=== PATIENT | male | born 1960 | race Hispanic/Latino ===

== ENCOUNTER 2019-10-19 06:55 | Day surgery (SDC) | payer MEDICAID ==
--- NOTE | 2019-10-18 09:11 | Short Stay Summary ---
Short Stay Documentation Date of service: 10/19/19 - History H&P: obtained from office - Allergies and Medications Current Medications: Allergies fish derived Allergy (Verified 10/15/19 09:13) Hives ORAL AND IV CONTRAST IS OK aspirin Adverse Reaction (Verified 10/15/19 09:13) GI Pain Home Medications Medication Instructions Recorded Confirmed Last Taken Type AtorvaSTATin [Lipitor] 20 mg PO QHS 10/15/19 10/15/19 Unknown History Ecotrin 81 mg PO DAILY 10/15/19 10/15/19 2 Days Ago History ~10/13/19 Ibuprofen [Motrin] 800 mg PO Q8HR PRN 10/15/19 10/15/19 Unknown History Levothyroxine [Synthroid] 100 mcg PO QAM 10/15/19 10/15/19 Unknown History Multivit-Min/Folic/Vit K/Lycop 1 each PO DAILY 10/15/19 10/15/19 Unknown History [One-A-Day Men's 50 Plus Tablet] amLODIPine [Norvasc] 10 mg PO DAILY 10/15/19 10/15/19 Unknown History hydroCHLOROthiazide 12.5 mg PO DAILY 10/15/19 10/15/19 Unknown History [Hydrochlorothiazide] - Physical exam General appearance: no acute distress HEENT: Atraumatic Lungs: Normal air movement Neurological: Normal speech - Brief post op/procedure progress note Date of procedure: 10/19/19 (dictation:[id number]) Pre-op diagnosis: BIH Post-op diagnosis: other (RIH) Procedure: robotic assisted lap RIH repair IVF 700cc EBL ~10cc Anesthesia: GETA Findings: large indirect RIH with large cord lipoma. no hernia on left Surgeon: KALEY JONES Switchboard Troubleshooter: RICHARD RM Estimated blood loss: minimal Pathology: none Condition: stable - Hospital course Hospital course: uneventful - Disposition Condition at discharge: Stable Disposition: DC-01 TO HOME OR SELFCARE Short Stay Discharge Plan Activity: advance as tolerated Diet: regular Wound: open to air, keep clean and dry Special Instructions: no heavy lifting Additional Instructions: Post Operative Instructions Activity: no heavy lifting for next 1 week. May shower tomorrow. Pat dry the wound or wounds. Keep incision sites clean and dry After surgery, start with a light diet. Consider starting with liquids. If you do well, you can advance to a regular diet as you feel comfortable. Apply an ice pack to the wound or wounds for 10-20 minutes at a time. Do this at least 4-5 times a day. You can do it more if he would like. Pain Medication Schedule for the first 2 days after surgery: Gabapentin 900mg twice a day Tylenol 500mg four times a day (every 6 hours) After the first 2 days, then take Tylenol as needed for pain. Take 500 mg of Tylenol every 6 hours as needed. Please finish the 1 week of gabapentin It is very important that you use the prescription narcotic pain medicine (percocet) only for very severe pain. Do not take the narcotic medicine before you try using all the medications listed above. YOU were medicated with 1 PERCOCET tab by mouth at 1215 .Remember to take Gabapentin and Tylenol as recommender by Dr Jones We will call you in a couple of days to see how youre doing. If you have any questions or concerns, always feel free to call the clinic ([phone]) at any time. Follow up with: KALEY JONES MD [Staff Physician] - 7 Days Forms: Outpatient Surgery DC Inst. Prescriptions: RX: Acetaminophen [Acetaminophen TAB] 500 mg PO Q6HR PRN #30 tablet PRN Reason: Pain, Moderate (4-6) Oxycodone HCl/Acetaminophen [Percocet 10/325 mg] 1 each PO Q6HR PRN #20 tablet PRN Reason: Pain , Severe (7-10)
[~2019-10-19 06:55] MED LIST: ACETAMINOPHEN 500 MG TAB PO NR; GABAPENTIN 400 MG CAP PO SCH; LACTATED RINGERS 1,000 ML IV SCH; MIDAZOLAM 2 MG/2 ML INJ IV NR; SODIUM CHLORIDE 0.9% 1000 ML 1,000 ML IV SCH; ceFAZolin/Water 2 GM/20 ML 2 GM/20 ML SYRINGE IV NR
[2019-10-19] MEDS ORDERED: LIDOCAINE (1%) 10 MG/1 ML VIAL 20 ML MDV ONE (07:27)
[2019-10-19] MEDS ORDERED: BUPIVACAINE-EPINEPHRINE/PF 0.5%-1:200,000 (30 ML) VIAL INFILTRATI ONE ×2 (07:27→10:00)
--- NOTE | 2019-10-19 07:34 | Anesthesia Consultation ---
Anesthesia Consult and Med Hx Date of service: 10/19/19 - Airway Anesthetic Teeth Evaluation: Good (missing teeth) ROM Head & Neck: Adequate (neck pain 2/2 herniated disc; normal ROM) Mental/Hyoid Distance: Inadequate Mallampati Class: Class III Intubation Access Assessment: Possibly Difficult - Pulmonary Exam CTA: Yes - Cardiac Exam Cardiac Exam: RRR - Pre-Operative Health Status ASA Pre-Surgery Classification: ASA3 Proposed Anesthetic Plan: General - Pulmonary Hx Smoking: No Hx Asthma: Yes (childhood; no inhaler use as an adult) Hx Respiratory Symptoms: No Hx Sleep Apnea: No (patient suspects but no formal diagnosis) - Cardiovascular System Hx Hypertension: Yes (took antihypertensives last night) Hx Heart Attack/AMI: No Hx Percutaneous Transluminal Coronary Angioplasty (PTCA): No - Central Nervous System CVA: No Hx Back Pain: Yes (2/2 herniated disc) Hx Psychiatric Problems: Yes (PTSD, anxiety, depression) - Gastrointestinal Hx Gastroesophageal Reflux Disease: Yes (w/ esophageal stricture s/p dilatations) - Endocrine Hx Renal Disease: No Hx Liver Disease: No Hx Insulin Dependent Diabetes: No Hx Non-Insulin Dependent Diabetes: No Hx Hypothyroidism: Yes - Additional Comments Anesthesia Medical History Comments: No hx anesthetic complications.
--- NOTE | 2019-10-19 07:34 | Anesthesia Day of Surgery ---
Anesthesia Day of Surgery - Day of Surgery Patient Examined: Yes Patient H&P Reviewed: Yes Patient is NPO: Yes Cardiac Clearance: Yes
[2019-10-19] MEDS ORDERED: ONDANSETRON 4 MG/2 ML INJ ONE (07:35)
[2019-10-19] MEDS ORDERED: HYDROmorphone 1 MG/1 ML INJ ONE (07:35)
[2019-10-19] MEDS ORDERED: ROCURONIUM 50 MG/5 ML INJ IV ONE (07:35)
[2019-10-19] MEDS ORDERED: propofoL 200 MG/20 ML VIAL IV ONE (07:36)
[2019-10-19] MEDS ORDERED: HYDROmorphone 1 MG/1 ML INJ IV PRN (08:00)
[2019-10-19] MEDS ORDERED: FAMOTIDINE 20 MG/2 ML INJ IV SCH (08:00)
[2019-10-19] MEDS ORDERED: dexAMETHasone 20 MG/5 ML VIAL ONE (08:56)
[2019-10-19] MEDS ORDERED: LIDOCAINE MPF (2%) 20 MG/1 ML VIAL 5 ML ONE (08:57)
[2019-10-19] MEDS ORDERED: SODIUM CHLORIDE 0.9% IRRIG SOLN 2000 ML IR ONE (10:00)
[2019-10-19] MEDS ORDERED: LIDOCAINE (1%) 10 MG/1 ML VIAL 20 ML MDV INFILTRATI ONE (10:00)
[2019-10-19] MEDS ORDERED: NEOSTIGMINE 10MG/10 ML INJ MDV ONE (10:16)
[2019-10-19] MEDS ORDERED: GLYCOPYRROLATE 0.4 MG/2 ML INJ ONE (10:16)
[2019-10-19] MEDS ORDERED: WATER FOR IRRIG STERILE 1,500 ML BOTTLE IR ONE (10:29)
--- NOTE | 2019-10-19 11:28 | Operative Report ---
PREOPERATIVE DIAGNOSIS: Bilateral inguinal hernias. POSTOPERATIVE DIAGNOSIS: Right inguinal hernia. PROCEDURE: Robotic-assisted laparoscopic right inguinal herniorrhaphy. ATTENDING PHYSICIAN: Stephanie Angulo MD [employer]: Dr. Keenan. ANESTHESIA: General. ESTIMATED BLOOD LOSS: Less than 10 mL. FLUIDS: 700 mL. FINDINGS: Large indirect inguinal hernia with large cord lipoma and scarred in inguinal hernia sac. No hernia was found on the left. IMPLANTS: Right medium 3DMax mesh. DRAINS: None. COMPLICATIONS: None. DISPOSITION: Stable, transferred to Recovery Room. INDICATIONS: This is a 58-year-old male who comes to the office with complaints of progressively enlarging and painful right inguinal hernia. The patient found to have a reducible right inguinal hernia. CT scan showed a large right inguinal hernia and had suggestions of possible left on exam. I thought he had a small left as well. The patient is assessed to be need for bilateral repair. Procedure, risks, benefits were explained to the patient. Risks included but were not limited to infection, bleeding, pain, injury to surrounding structures, possible need for further procedures in the future. The patient understood and consented. The patient has pain for a long period of time today in the preop holding area and he reported a 8/10 pain. We discussed in the office and again I reiterated to him today that he may have some component of nerve damage due to the longstanding nature of his pain. The patient understood that he may still have some pain after surgery due to the possible nerve damage. OPERATIVE NOTE: The patient was brought to the operating room and placed on the table in supine position. After adequate general anesthesia was established, the patient was prepped and draped in the usual sterile fashion. SCDs were in place. Antibiotics had been given. Time-out was called. Arms were tucked. All pressure points were padded. I began by placing a Veress needle in left upper quadrant. I was able to insufflate in first attempt. This was replaced with a 5 mm port that we inserted using the Optiview technique. There was no injury to the underlying structures. Under direct vision, a 12 mm port was placed in the supraumbilical position. Two 8 mm ports were placed laterally. We examined the inguinal areas. There was an obvious inguinal hernia on the right. Both Dr. Keenan and I evaluated the left. We did not see anything obvious. Therefore, we elected not to pursue repair at this time on the left. We focused our attention on the right. The patient was placed in Trendelenburg position. Gauze was inserted, right medium mesh was inserted and robot was docked. I then proceeded to the console. We created the preperitoneal flap. The sac and some of the tissue around the cord structures were densely adherent. Some bleeding was encountered; however, we were able to control it with electrocautery. Large dissection was done, everything looked very good. We removed a very large cord lipoma as well as dissected the hernia sac back to the point of the junction of the medial ligament and the vas deferens. Mesh was then attached to the pubic tubercle using a 2-0 V-Loc suture and then I began to bring the stitch around the top of the mesh. As we proceeded along the top, we encountered some bleeding. I had inadvertently nicked the epigastric vessel. We were able to get it under control quickly. Clips were placed proximally and distally to the point of injury and there was no further bleeding. We then proceeded to put a 2-0 Vicryl stitch on the lateral aspect of the mesh rather than continue with running the V-Loc. The mesh laid very nicely. I then used a 3-0 V-Loc to close the peritoneal defect. We had placed an angiocatheter just behind the mesh. We had determined a location at the beginning of surgery. This was going to be used to decompress the area at the end. The needle was retracted just into the catheter to prevent the catheter from being kinked. I then closed the peritoneum with a 3-0 V-Loc suture. It closed very nicely. We saw a 1 cm at most defect in the hernia sac. This was closed with the 2-0 Vicryl suture that I used to secure the lateral aspect of the mesh. Please note that where we had encountered the bleeding, we saw no further bleeding as we secured the mesh. Also, when we dropped the pressure down from 8 from 15 and when we closed the peritoneum, there continued to be no evidence of any recurrent bleeding. There was no hematoma formation. Everything was very clean. Everything looked very good. It appeared as though we had very good control with the clips. We then undocked the robot. I removed the gauze. All the needles were removed. Count was correct. It continued to be no evidence of any recurrent bleeding. We then desufflated the abdomen, injected additional local into the incision sites and prior to that, we closed the fascia at the 12 mm port site with a Arturo-Shashank fascial closure device using a 2-0 PDS suture. Then, we desufflated the abdomen, removed all the ports under direct vision. Once the abdomen was completely desufflated, we put pressure in the groin region and scrotum to make sure all the air was out of there and then removed the Angiocath. Please note that the needle had been retracted earlier, so there was nothing out that might cause an injury. Skin sites were closed with 4-0 Monocryl subcuticular stitches. Skin was cleaned and dried. Dermabond was placed. The patient tolerated the procedure well. There were no complications. All counts were correct at the end of the case. I spoke with the daughter at the end of the case. JOB# [id number] [facility] [place]
[2019-10-19] MEDS ORDERED: oxyCODONE /ACETAMINOPHEN 5-325MG TAB PO PRN (11:55)
--- NOTE | 2019-10-19 13:02 | Post Anesthesia Evaluation ---
- Post Anesthesia Evaluation Patient Participated: Yes Airway Patent: Yes Stable Respiratory Function: Yes Nausea/Vomiting: No Temp > 96.8F: Yes Pain Manageable: Yes Adequeate Hydration: Yes Anesthesia Complications: No
[2019-10-19 13:51] VITALS: BP 125/76
== END 2019-10-19 06:56 | disposition home or self-care (01) ==
LOC: OR 06:55
PROVIDERS: ATTEND Surgery
DX: K40.90 Unilateral inguinal hernia, without obstruction or gangrene, not specified as recurrent (principal); E78.00 Pure hypercholesterolemia, unspecified; K21.9 Gastro-esophageal reflux disease without esophagitis; F32.9 Major depressive disorder, single episode, unspecified; F41.9 Anxiety disorder, unspecified; E03.9 Hypothyroidism, unspecified; M19.90 Unspecified osteoarthritis, unspecified site; I10 Essential (primary) hypertension; J45.909 Unspecified asthma, uncomplicated; Z88.6 Allergy status to analgesic agent; Z79.899 Other long term (current) drug therapy; Z80.8 Family history of malignant neoplasm of other organs or systems
CPT/HCPCS: 36415; 49650; 84132; A4217; C1781; J0690; J1100; J1170; J2250; J2405; J2704; J2710; J7120; S2900

== ENCOUNTER 2020-10-17 14:15 | Outpatient (CLI) | payer MEDICAID ==
--- NOTE | 2020-10-17 15:58 | Cat Scan Report ---
CT abdomen pelvis wo con INDICATION: RIGHT LOWER QUADRANT PAIN. COMPARISON: None TECHNIQUE: Abdominal and pelvic CT exam performed. All CT scans at this location are performed using CT dose reduction for ALARA by means of automated exposure control. FINDINGS: CT ABDOMEN and PELVIS: Lung Bases: No significant abnormality. Liver: No significant abnormality. Biliary: No significant abnormality. Spleen: No significant abnormality. Pancreas: No significant abnormality. Adrenals: No significant abnormality. Kidneys: Small bilateral renal cysts. 1 cm left anterior midpole hyperattenuating nodule with Hounsfi eld units of approximately 55. Lymphatics: No lymphadenopathy. Vasculature: Atherosclerotic but nonaneurysmal abdominal aorta. Bowel: Diverticulosis without colonic wall thickening or pericolonic stranding. Normal appendix. Pelvis: No significant abnormality. Osseous Structures: No aggressive osseous lesion. Additional Findings: None IMPRESSION: 1. No acute abnormality of the abdomen or pelvis. 2. LEft 1 cm left anterior midpole hyperattenuating lesion which most likely represents a hemorrhagic cyst. However, is indeterminate on this examination and a multiphase CT abdomen can be obtained to [facility]. Signer Name: Santiago Keita MD Signed: 10/17/2020 3:53 PM Workstation Name: [id number]
== END 2020-10-17 14:16 | disposition home or self-care (01) ==
LOC: CT 14:15
PROVIDERS: ATTEND Surgery
DX: N28.1 Cyst of kidney, acquired (principal); K57.30 Diverticulosis of large intestine without perforation or abscess without bleeding; I70.0 Atherosclerosis of aorta
CPT/HCPCS: 74176